=== PATIENT | male | born 1970 | race Caucasian/White ===

== ENCOUNTER 2019-02-01 20:34 | Observation (INO) ==
--- NOTE | 2019-02-01 21:21 | PROVIDER DOCUMENTATION ---
HPI-Rash/Wound/ReCheck - General Chief Complaint: Sores/Lesions Stated Complaint: CELLULITIS Time Seen by Provider: 02/01/19 21:15 Source: patient Allergies/Adverse Reactions: Allergies Allergy/AdvReac Type Severity Reaction Status Date / Time moxifloxacin HCl * Allergy ANAPHYLAXIS Verified 01/13/19 14:20 [From Avelox] Penicillins Allergy Unknown Verified 01/13/19 14:20 Home Medications: Home Medication List Medication Instructions Recorded Confirmed Last Taken Type Clonazepam [Klonopin] 0.5 mg PO DAILY PRN 05/16/14 02/02/19 01/13/19 History Metoprolol Succinate E.r. [Toprol 100 mg PO DAILY 03/29/16 02/02/19 01/13/19 History Xl] Citalopram [Celexa] 40 mg PO QHS 01/13/19 02/02/19 01/13/19 History Esomeprazole [Nexium] 40 mg PO DAILY PRN 01/13/19 02/02/19 01/13/19 History Fexofenadine/Pse E.r. 12 Hr 1 tab PO DAILY PRN 01/13/19 02/02/19 01/13/19 History [Antonietta-D 12 Hour] Levothyroxine [Synthroid] 75 microgm PO DAILY@0700 01/13/19 02/02/19 01/13/19 History Lisinopril/Hydrochlorothiazide 1 ea PO BID 01/13/19 02/02/19 01/13/19 History [Lisinopril-Hctz 20-12.5 mg Tab] Montelukast Sodium [Singulair] 10 mg PO PRN PRN 01/13/19 02/02/19 01/13/19 History - History of Present Illness-Dermatology Nature of Presenting Problem: 48 yom presents after 2 visits to urgent care drainage from navel and redness around it. he began abx on yesterday. denies fever, chills, n/v/d. Location: reports: torso Front/Back of Body: 1 - redness, drainage from navel Quality: reports: painful Severity: reports: mild Onset/Duration: reports: 2 days ago Timing: reports: still present Context/Associated Symptoms: reports: abrasion, other (reports he was doused with "garbage juice" at work 4 days ago) Identifiable cause?: No Recently seen or treated by another doctor?: Yes Review of Systems - Adult - REVIEW OF SYSTEMS - ADULT Constitutional: reports: no symptoms reported. denies: see HPI, chills, fever, fatique, night sweats, weight gain, weight loss, other Eyes: reports: no symptoms reported. denies: see HPI, discharge, dry eyes, decreased vision, blurred vision, double vision, eye pain, redness, other Ears, Nose, Mouth & Throat: reports: no symptoms reported. denies: see HPI, ear discharge, ear pain, hearing loss, tinnitus, epistaxis, sinus problem, nose pain, loose teeth, mouth/dental pain, mouth swelling, hoarseness, throat pain, throat swelling, other Cardiovascular: reports: no symptoms reported. denies: see HPI, chest pain, edema, heart murmur, irregular heart rate, orthopnea, palpitations, poor circulation, PND, syncope, other Respiratory: reports: no symptoms reported. denies: see HPI, chronic cough, cough, dyspnea on exertion, excessive sputum production, hemoptysis, pleurisy, shortness of breath, wheezing, other Gastrointestinal: reports: no symptoms reported. denies: see HPI, abdominal pain, hematemesis, constipation, diarrhea, difficulty swallowing, frequent heartburn, nausea, poor appetite, rectal bleeding, vomiting, other Genitourinary: reports: no symptoms reported. denies: see HPI, dysuria, discharge, frequency, flank pain, frequent UTI's, hematuria, hesitency, incontinence, urinary retention, urgency, other Musculoskeletal: reports: no symptoms reported. denies: see HPI, bone pain, back pain, frequent leg cramps, joint pain, joint swelling, muscle aches, muscle weakness, neck pain, other Integumentary: reports: skin sores/ulcer. denies: no symptoms reported, see HPI, hives, hair loss, itching, mole changes, nail changes, rash, skin thickening, other Neurological: reports: no symptoms reported. denies: see HPI, ataxia, dizziness/vertigo, headache/migraines, loss of balance, numbness, paresthesia, seizure, slurred speech, syncope, tremors, other Psychiatric: reports: no symptoms reported. denies: see HPI, anxiety, anti-depressant use, alcohol/drug dependence, depression, emotional problems, insomnia, panic attacks, suicidal thoughts, other Endocrine: reports: no symptoms reported. denies: see HPI, change in skin pigment, excessive sweating, goiter, cold intolerance, heat intolerance, increased hunger, increased thirst, polyuria, other Hematologic/Lymphatic: reports: no symptoms reported. denies: see HPI, blood clots, easy bruising, low blood count, lymphedema, prolonged bleeding, swollen lymph nodes, transfusions, other Allergic/Immunologic: reports: no symptoms reported. denies: see HPI, allergic reactions, allergic rhinitis, asthma, eczema, food allergy, frequent infections, hay fever, hives, positive PPD, urticaria, other Past History - Adult - PAST MEDICAL HISTORY-ADULT Review of Records: reports: Nursing Assessment Review, Social history reviewed & non-contributory. Major Childhood Illnesses: reports: denies history Cardiovascular: reports: HTN Respiratory: reports: denies history Gastrointestinal: reports: denies history Obstetrical/Gynecological: reports: denies history Genitourinary: reports: denies history Musculoskeletal: reports: denies history, other (gout) Neurological: reports: denies history Endocrine/Immune: reports: denies history Other Conditions: reports: denies history - PRIOR SURGERIES/PROCEDURES Surgical/Procedure History: reports: reviewed, not pertinent - PRIOR HOSPITALIZATIONS Prior Hospitalizations: reports: none - IMMUNIZATION STATUS Childhood Immunizations: See Nurse Assessment Flu Vaccine: See Nurse Assessment - FAMILY HISTORY Family History: reviewed, not pertinent Physical Exam-General - PHYSICAL EXAM-ADULT Initial Vital Signs Reviewed: Yes - CONSTITUTIONAL General Appearance: appears well, alert, no apparent distress - EYES Eyes: PERRL/EOMI, pink conjunctivae - HEAD, EARS, NOSE, MOUTH & THROAT HENMT: normocephalic/atraumatic, moist mucous membranes, normal ENT inspection - NECK Neck: non-tender, full range of motion - RESPIRATORY Respiratory: chest non-tender, lungs clear, normal breath sounds, no pleuratic chest pain, no respiratory distress, no accessory muscle use - CARDIOVASCULAR Cardiovascular: normal peripheral pulses, regular rate, rhythm, no edema, no gallop, no JVD, no murmur - GASTROINTESTINAL (ABDOMEN) Abdominal Exam: normal bowel sounds, non tender, soft - LYMPHATIC Lymphatic: no adenopathy - MUSCULOSKELETAL Back Exam: normal inspection, no CVA tenderness, no vertebral tenderness Extremity: normal range of motion, non-tender, normal gait - SKIN Integumentary: normal color, normal turgor, warm/dry - NEUROLOGIC Neurologic: grossly normal - PSYCHIATRIC Psych/Mental Status: normal mood/affect, oriented x 3 Progress - PLAN OF CARE/RESULTS Result Diagrams: 02/02/19 11:00 02/02/19 11:00 - CONSULTS/PCP/HOSPITALIST Notification #1 *Consult/PCP/Hospitalist*: SPOKE WITH DR. VALDES WHO RECOMMENDS ER STAFF MADE DECISION WHETHER TO ADM Time Discussed: 23:00 #2 Consult: DR DAVIAN ALMAZAN TO ADMIT, WILL GIVE VANCOMYCIN Consult Disposition: Admit Departure - Departure Date of Disposition Decision: 02/01/19 Time of Disposition Decision: 11:45 DIAGNOSIS: Cellulitis Disposition: ADMITTED INPATIENT 09 Certified Medical Emergency: Emergent Condition: Stable - Critical Care Note This patient required my direct & personal management of CC.: No Attestation - Physician/ CLARY Attestation Patient care was provided by Advanced Practice Provider:: Yes Advanced Practice Provider:: Monie Palacios Advanced Practice Provider documentation review:: The Mid-level provider documentation, treatment plan and medical decision making was reviewed by the physician who agrees with all treatment and medical decision making by the [facility]. The physician spent face to face time with patient:: Yes Advanced Practice Provider documentation review:: Supervising physician onsite and consulted in the evaluation and care of this patient. The physician did have a face to face encounter with the patient.
[2019-02-01 22:24] LABS: BASO# 0.12 X1000 (0.0-0.2); BASO% 1.1 % (0.0-0.8); EOS# 0.62 X1000 (0.0-0.7); EOS% 5.6 % (0.0-10.0); HEMATOCRIT 42.9 % (42.0-52.0); HEMOGLOBIN 14.2 g/dL (14.0-18.0); IMM GRAN# 0.05 X1000 (0.0-0.04); IMM GRAN% 0.5 % (0.0-0.5); LYMPH% 26.4 % (20.5-51.1); MCH 28.3 PG (27-31); MCHC 33.1 g/dL (33-37); MCV 85.6 FL (81-99); MONO# 1.07 X1000 (0.11-0.59); MONO% 9.7 % (1.7-9.3); MPV 9.5 FL (7.4-10.4); NEUT# 6.23 X1000 (1.4-6.5); NEUT% 56.7 % (42.2-75.2); PLT 288 X1000 (130-400); RBC 5.01 XMIL (4.7-6.1); WBC 10.99 X1000 (4.8-10.8)
[2019-02-02] MEDS ORDERED: VANCOMYCIN IV PER PHARMACY MISC SCH (00:03)
[2019-02-02 00:38] LABS: AGAP 10; BUN 15 mg/dL (8-22); CALCIUM 9.1 mg/dL (8.8-10.2); CHLORIDE 102 mmol/L (98-107); COSMO 280; CREATININE 0.7 mg/dL (0.7-1.2); ESTIMATED GFR > 60; GLUCOSE 97 mg/dL (70-104); POTASSIUM 4.3 mmol/L (3.5-5.1); SODIUM 140 mmol/L (136-145); TCO2 28 mmol/L (25-35)
[2019-02-02] MEDS: NS 1,000 ML IV SCH (01:15)
[2019-02-02] MEDS ORDERED: VANCOMYCIN 1 GM/NS 1 GM/250 ML IVPB IV ONE ×3 (01:15→12:30)
[2019-02-02] MEDS: ROCEPHIN 1 GM in NS 50 ML IV SCH (09:26)
[2019-02-02] MEDS ORDERED: ALLEGRA-D 12 HOUR PO PRN (10:15)
[2019-02-02] MEDS ORDERED: SINGULAIR PO PRN (10:15)
[2019-02-02] MEDS ORDERED: NEXIUM PO PRN (10:15)
[2019-02-02] MEDS: PRINIVIL PO SCH ×2 (11:02→21:47)
[2019-02-02] MEDS: HYDROCHLOROTHIAZIDE PO SCH ×2 (11:02→21:47)
[2019-02-02 11:19] LABS: BASO# 0.09 X1000 (0.0-0.2); EOS# 0.34 X1000 (0.0-0.7); EOS% 3.9 % (0.0-10.0); HEMATOCRIT 41.7 % (42.0-52.0); HEMOGLOBIN 13.8 g/dL (14.0-18.0); IMM GRAN# 0.03 X1000 (0.0-0.04); IMM GRAN% 0.3 % (0.0-0.5); LYMPH# 1.95 X1000 (1.2-3.4); LYMPH% 22.4 % (20.5-51.1); MCH 28.9 PG (27-31); MCHC 33.1 g/dL (33-37); MCV 87.2 FL (81-99); MONO# 0.87 X1000 (0.11-0.59); MPV 9.2 FL (7.4-10.4); NEUT# 5.41 X1000 (1.4-6.5); NEUT% 62.4 % (42.2-75.2); PLT 282 X1000 (130-400); RBC 4.78 XMIL (4.7-6.1); RDW 14.1 % (11.5-14.5); WBC 8.69 X1000 (4.8-10.8)
[2019-02-02 11:20] LABS: AGAP 9; BUN 13 mg/dL (8-22); CALCIUM 8.8 mg/dL (8.8-10.2); CHLORIDE 104 mmol/L (98-107); COSMO 286; CREATININE 0.7 mg/dL (0.7-1.2); ESTIMATED GFR > 60; GLUCOSE 106 mg/dL (70-104); MAGNESIUM 1.8 mg/dL (1.5-2.7); POTASSIUM 4.3 mmol/L (3.5-5.1); SODIUM 143 mmol/L (136-145); TCO2 30 mmol/L (25-35)
--- NOTE | 2019-02-02 11:23 | Diag Imaging Result Doc PS360 ---
EXAM: CT ABD/PELVIS W/IV CONT ONLY - 02/02/2019 HISTORY: umbilical cellulitis/drainage - rule out abscess TECHNIQUE: CT abdomen/pelvis with intravenous contrast. No oral contrast administered per request the referring provider. COMPARISON: CT abdomen/pelvis without contrast of 01/09/2019 FINDINGS: There is been development of skin thickening at the periumbilical region. There is been development of a cylindrical soft tissue thickening which extends from the umbilicus to the underlying midline anterior abdominal wall. This has maximum transverse dimension of 1.8 cm. This tapers (narrows) and the deeper subcutaneous fat near the anterior abdominal wall. The thickened area enhances relatively homogeneously. There is possibly a small amount of fluid within the thickened area. There is no discrete abscess identified. There is no subcutaneous gas identified. Abdominal wall vasculature does not appear thickened. There is no evidence of inflammation in the underlying anterior abdomen. There are no acute abnormalities of the liver, spleen, adrenal glands, or pancreas identified. There are no calcified gallstones or pericholecystic inflammation identified. There are small nonobstructing stones in bilateral kidneys. There is no hydronephrosis. There is possibly 4.3 x 2.7 cm in maximum axial dimensions low-density lesion at the mid left kidney. This was identified as a cyst on the 01/13/2019 renal ultrasound. There is no evidence of bowel obstruction. There is no free air. IMPRESSION: Cellulitis at periumbilical region. Narrow cylindrical extension of inflammation posterior to the umbilicus into the deep subcutaneous tissues. No discrete abscess. This exam was performed using automated exposure control, adjustment of mA or kV according to patient size, and/or use of iterative reconstruction technique. Electronically signed by Mc Goldman 02/02/2019 11:20 AM
--- NOTE | 2019-02-02 16:07 | HISTORY AND PHYSICAL ---
PRIMARY CARE PHYSICIAN: Dr. Adiel Carrera CHIEF COMPLAINT: Infection noted to umbilical area for the past 5 days. 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 The patient states that on of last week, he had a scratch to his lower abdomen in the umbilical area, and when he was driving the garbage truck, apparently he got out of the truck and somehow some of trash ended up on him. The next day, Friday, he noticed the abdominal wound started oozing a little bit. On Friday, he decided to go to to [facility] where they gave him a shot of dexamethasone and a shot of antibiotics. They also gave him an oral dose of doxycycline. The patient states that he took this for a few days and on Friday, he woke up and noticed that there was a large amount of pus draining from the wound, and his umbilical area was very edematous, and a lot of erythema was noted around the wound. PAST MEDICAL HISTORY: Hypertension, depression, anxiety, hypothyroidism, gout, kidney stones, and the patient states he is noted to have a cyst on the left kidney. He does see a urologist, Dr. Kane Guerrero, at [facility]. PAST SURGICAL HISTORY: None. FAMILY HISTORY: Mother had history of larynx cancer. Also had a history of atrial fibrillation. Dad has a history of prostate cancer and cardiomyopathy. SOCIAL HISTORY: The patient lives in [place] with his and his son. The patient does chew tobacco. The patient states that he does drink alcohol but is very rare. Denies any drug use. ALLERGIES: The patient states he does have seasonal allergy with multiple sinus infections. He is also allergic to Avelox and penicillin. MEDICATIONS: Celexa 40 mg p.o. daily at bedtime, Klonopin 0.5 mg p.o. daily, Nexium 40 mg p.o. daily, Antonietta D one tablet p.o. daily, Synthroid 75 mcg p.o. daily, lisinopril/hydrochlorothiazide 20/12.5 mg p.o. b.i.d., metoprolol 100 mg p.o. daily, Singulair 10 mg p.o. as needed. DIAGNOSTIC DATA: White blood cells initially was 10.99, today is 8.69. Hemoglobin and hematocrit are 13.8 and 41.7, platelet count is 282. Sodium level is 143, potassium 4.3, CO2 is 30, BUN is 1.3, creatinine 0.7, glucose 106, calcium 8.8, magnesium 1.8. TSH is 3.33. CT of the abdomen and pelvis done with impression of cellulitis at the periumbilical region, narrowed cylindrical extension of inflammation posterior to the umbilicus into the deep subcutaneous tissue. No abscess. CT also shows small nonobstructing stones in the bilateral kidneys with a 4.3 x 2.7 cm lesion on the left kidney that was identified as a cyst on 01/13/2019 by renal ultrasound. REVIEW OF SYSTEMS: Patient is positive for cellulitis to umbilical region, otherwise negative review of systems. PHYSICAL EXAMINATION: VITALS: Temperature 97.3, Heart rate 72, Respiratory Rate 20, BP 134/78 (89), O2 saturation 96% on room air. GENERAL: This is a 48-year-old male, who is sitting up in the chair. In no acute distress and answers questions appropriately. HEENT: Normocephalic and atraumatic. Pupils are equal, round, reactive to light. The extraocular movements are intact. The oropharynx and nares are clear. NECK: supple with no lymphadenopathy, trachea midline LUNGS: Clear to auscultation bilaterally with equal lung expansion and chest wall movement. HEART: Regular rate and rhythm. No murmurs rubs or gallops. ABDOMEN: Soft, tender, obese, and nondistended. Bowel sounds are present x 4 quadrants EXTREMITIES: No clubbing, cyanosis, or edema NEUROLOGICAL: The cranial nerves 2-12 are grossly intact. SKIN: Umbilical wound noted with serosanguinous drainage noted from wound. All other skin intact. ASSESSMENT AND PLAN: 1. Cellulitis to the umbilical region. Wound Care consulted for treatment. The patient did receive treatment in the ER by Dr. Souza where he cleaned the wound out. Antibiotic treatment of Rocephin 1 g every 24 hours and vancomycin ordered 2000 mg every 12 hours ordered. 2. Hypothyroidism. Reorder the patient's Synthroid. 3. Hypertension. Reordered his lisinopril/hydrochlorothiazide. 4. Depression. Reorder his Celexa and his Klonopin. We will continue the patient on IV antibiotics. As stated above, Wound Care is consulted for management. Dictated by SHAWANDA Garcia for Navin Rodriguez MD cc: MD Elia Coffey MD MTDD
[2019-02-02] MEDS: VANCOMYCIN 2,000 MG in NS 500 ML IV SCH (18:39)
[2019-02-02] MEDS: CELEXA PO SCH (21:47)
[2019-02-02] MEDS: KLONOPIN PO PRN (21:50)
--- NOTE | 2019-02-02 23:42 | HISTORY AND PHYSICAL ---
ADDENDUM: Patient seen and examined by myself. Full note dictated and discussed with nurse practitioner. Patient has drainage and swelling around his umbilicus. He has morbid obesity. A CT was not done in the ER and, therefore, we will order this morning. Place him on antibiotics and will follow. Please see full note. cc: Navin Rodriguez MD
[2019-02-03] MEDS: SYNTHROID PO SCH (06:04)
[2019-02-03] MEDS: VANCOMYCIN 2,000 MG in NS 500 ML IV SCH ×2 (06:04→22:30)
[2019-02-03] MEDS: NS 1,000 ML IV SCH (06:04)
[2019-02-03 07:32] LABS: BASO% 1.1 % (0.0-0.8); EOS# 0.49 X1000 (0.0-0.7); EOS% 5.6 % (0.0-10.0); HEMATOCRIT 43.8 % (42.0-52.0); HEMOGLOBIN 14.6 g/dL (14.0-18.0); IMM GRAN# 0.05 X1000 (0.0-0.04); IMM GRAN% 0.6 % (0.0-0.5); LYMPH# 1.86 X1000 (1.2-3.4); LYMPH% 21.1 % (20.5-51.1); MCH 28.6 PG (27-31); MCHC 33.3 g/dL (33-37); MCV 85.9 FL (81-99); MONO# 0.69 X1000 (0.11-0.59); MONO% 7.8 % (1.7-9.3); MPV 9.4 FL (7.4-10.4); NEUT# 5.62 X1000 (1.4-6.5); NEUT% 63.8 % (42.2-75.2); PLT 266 X1000 (130-400); WBC 8.81 X1000 (4.8-10.8)
[2019-02-03 07:41] LABS: AGAP 13; BUN 11 mg/dL (8-22); CHLORIDE 102 mmol/L (98-107); COSMO 283; CREATININE 0.7 mg/dL (0.7-1.2); ESTIMATED GFR > 60; GLUCOSE 99 mg/dL (70-104); POTASSIUM 3.6 mmol/L (3.5-5.1); SODIUM 142 mmol/L (136-145); TCO2 28 mmol/L (25-35)
[2019-02-03] MEDS: PRINIVIL PO SCH ×2 (09:05→22:30)
[2019-02-03] MEDS: TOPROL XL PO SCH (09:05)
[2019-02-03] MEDS: HYDROCHLOROTHIAZIDE PO SCH ×2 (09:05→22:30)
[2019-02-03] MEDS: KLONOPIN PO PRN (09:05)
[2019-02-03] MEDS: ROCEPHIN 1 GM in NS 50 ML IV SCH (11:03)
--- NOTE | 2019-02-03 13:47 | GENERAL SURGERY CONSULTATION ---
DATE: 02/03/2019 HISTORY: Mr. Hahn is an obese 48-year-old, male who works for the [employer] department. Last week he noted some pain and oozing from his umbilicus. He was seen in the [facility] on the and was given Decadron and antibiotics was then put on oral doxycycline. He had a large amount of pus noticed on the any was then sought medical attention. He reports a similar illness back in high school when he played football. It was felt then that he got staff from being in the locker room. PAST MEDICAL HISTORY: Pertinent for hypertension, depression, anxiety, hypothyroidism, gout, kidney stones and a cyst on the kidney. USUAL MEDICATIONS AT HOME INCLUDE: Celexa, Klonopin, Nexium, Antonietta D, Synthroid, lisinopril/hydrochlorothiazide, metoprolol, Singulair. ALLERGIES: Avelox and penicillin. PAST SURGICAL HISTORY: No previous surgical history. FAMILY HISTORY: Pertinent for history of prostate cancer and cardiomyopathy in his father. History of larynx cancer in his mother. SOCIAL HISTORY: He is employed. He is and has a son. He does not smoke. He does drink alcohol occasionally. Denies illicit drug use. REVIEW OF SYSTEMS: Negative except for his abdominal wall complaints. Denies any fever. PHYSICAL EXAMINATION: Vital Signs: He is afebrile. Heart rate 72, blood pressure 134/78. NECK: No cervical adenopathy. Lungs: Bilateral breath sounds. Heart: Regular rate and rhythm. Abdomen: Soft. He has a minimal edema and erythema of the periumbilical area, more the lower end of the left of the umbilicus. The umbilicus has a Drawtex stuck in it. There was no purulent drainage currently. Extremities: There is no peripheral edema. Neurologic: He is awake and alert. LABORATORY DATA: His white count is 8800, hemoglobin is 14.6, chemistry is fine. ASSESSMENT: Some mild residual cellulitis of his abdominal wall which should resolve with appropriate antibiotic therapy. I do not think he has any undrained purulence. The Drawtex would be fine to absorb whatever drainage is coming from his umbilicus. No operative intervention is indicated. I will be glad to see me in followup if necessary. cc: Tone Palacios MD
[2019-02-03] MEDS: CELEXA PO SCH (20:30)
--- NOTE | 2019-02-03 21:48 | PROGRESS NOTE ---
DATE: 02/03/2019 SUBJECTIVE: Patient has no new complaints. States he is starting to feel better. His abdominal pain is improved. Still having some umbilical drainage. PHYSICAL EXAMINATION: Vital Signs: Reviewed. He is awake, alert. He is in no current distress. HEENT: Normocephalic. Neck: Supple. Cardiovascular: Regular rate. Chest: Clear. Abdomen: Soft. Extremities: Moves all extremities. ASSESSMENT: 1. Cellulitis around his umbilicus, improving. 2. Morbid obesity. 3. Hypertension. 4. Depression. 5. Anxiety. 6. Hypothyroidism. PLAN: We will continue patient in the hospital. Continue antibiotics. Hopefully, he can discharge home over the next 1 or 2 days. We will await culture and sensitivity results. cc: Navin Rodriguez MD
[2019-02-04] MEDS: NS 1,000 ML IV SCH (02:22)
[2019-02-04 05:32] VITALS: BP 115/85
[2019-02-04] MEDS: SYNTHROID PO SCH (06:26)
[2019-02-04 06:40] LABS: BASO# 0.08 X1000 (0.0-0.2); BASO% 0.9 % (0.0-0.8); EOS# 0.55 X1000 (0.0-0.7); EOS% 5.9 % (0.0-10.0); HEMATOCRIT 42.4 % (42.0-52.0); IMM GRAN# 0.07 X1000 (0.0-0.04); IMM GRAN% 0.7 % (0.0-0.5); LYMPH% 29.9 % (20.5-51.1); MCH 28.5 PG (27-31); MCV 86.4 FL (81-99); MONO% 9.6 % (1.7-9.3); MPV 9.2 FL (7.4-10.4); NEUT# 4.97 X1000 (1.4-6.5); PLT 316 X1000 (130-400); RBC 4.91 XMIL (4.7-6.1); RDW 14.1 % (11.5-14.5); WBC 9.37 X1000 (4.8-10.8)
[2019-02-04 06:58] LABS: AGAP 9; BUN 10 mg/dL (8-22); CHLORIDE 104 mmol/L (98-107); COSMO 282; CREATININE 0.7 mg/dL (0.7-1.2); ESTIMATED GFR > 60; GLUCOSE 102 mg/dL (70-104); POTASSIUM 4.3 mmol/L (3.5-5.1); SODIUM 142 mmol/L (136-145); TCO2 29 mmol/L (25-35)
[2019-02-04] MEDS ORDERED: DOXYCYCLINE PO SCH (09:00)
[2019-02-04] MEDS: KLONOPIN PO PRN (09:08)
[2019-02-04] MEDS: HYDROCHLOROTHIAZIDE PO SCH (09:08)
[2019-02-04] MEDS: TOPROL XL PO SCH (09:08)
[2019-02-04] MEDS: PRINIVIL PO SCH (09:08)
[2019-02-04] MEDS ORDERED: KEFLEX PO SCH (14:00)
--- NOTE | 2019-02-05 05:05 | DISCHARGE SUMMARY ---
ADMISSION DATE: 02/02/2019 DISCHARGE DATE: 02/04/2019 CONSULTATIONS: Dr. Tone Palacios with General Surgery. PERTINENT PROCEDURES: Abdomen and pelvis CT, cellulitis at periumbilical region, [*]extension of inflammation posterior to the umbilicus into the deep subcutaneous tissue, no discrete abscess. DISCHARGE DIAGNOSES: 1. Cellulitis to the umbilical region. The patient was initiated on intravenous antibiotics, seen by General Surgery, who felt that there was some mild residual cellulitis of his abdominal wall which would resolve with appropriate antibiotic therapy. They did not feel like he had any undrained purulence and to continue with [*]to absorb whatever drainage was coming from his umbilicus and no operative intervention was indicated. His cultures grew out diphtheroids and he will be discharged home on oral Keflex. 2. Morbid obesity. 3. Hypertension. 4. Depression and anxiety. 5. Hypothyroidism. HOSPITAL COURSE: Briefly, Mr. Hahn is a 48-year-old male who is morbidly obese. 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 He states that on of last week, he had a scratch to his lower abdomen in the umbilical area and when he was driving the garbage truck apparently he got out and ended up with some trash on him. The next day he noted his abdominal wound started to ooze a little bit. On Friday, he went to [facility] where they gave him a shot of steroids and antibiotics as well as oral doxycycline. He took this for a few days and on Friday he woke up and noticed that there was a large amount of pus draining from the wound and his umbilical area was very edematous and a lot of erythema was noted around the wound. He was initiated on IV antibiotics in the ED with Rocephin and vancomycin as well as a wound care consult and general surgery. They did not feel that there was anything that need to be I D'd at that time, that he was draining appropriately and was clearing up with IV antibiotics. His cultures grew out diphtheroids and he will be discharged home on p.o. Keflex. He has had a stable hospital course. VITAL SIGNS: Temperature is 97.4 degrees, heart rate 60, respirations 16, blood pressure 115/85, O2 is 97% on room air. DISCHARGE DIET: Regular. DISCHARGE MEDICATIONS: 1. Celexa 40 mg p.o. at bedtime. 2. Antonietta-D 1 tab p.o. daily. 3. Klonopin 0.5 mg p.o. daily. 4. Lisinopril, hydrochlorothiazide 1 each p.o. b.i.d. 5. Nexium 40 mg p.o. daily. 6. Singulair 10 mg p.o. p.r.n. 7. Synthroid 75 mcg p.o. daily. 8. Toprol-XL 100 mg p.o. daily. 9. Keflex 500 mg p.o. 4 times a day x30 capsules FOLLOWUP: Mr. Hahn is being discharged back home with self care. He is to follow up with his primary care provider, Dr. Adiel Carrera in 1 to 2 weeks. He is to take all antibiotics as prescribed. Continue wound care as prescribed. He can return to the ED or call 911 for any worsening of symptoms. Dictated by SHAWANDA Carbajal for Navin Rodriguez MD cc: MD Dr. Adiel Coffey
--- NOTE | 2019-02-05 20:32 | DISCHARGE SUMMARY ---
ADMISSION DATE: 02/01/2019 DISCHARGE DATE: 02/04/2019 DISCHARGE DIAGNOSES: 1. Periumbilical cellulitis, improved. 2. Morbid obesity. 3. Hypothyroidism. 4. Hypertension. 5. Chronic anxiety and depression. CONSULTATION: Surgery. PROCEDURES: CT of the abdomen. BRIEF HOSPITAL COURSE: The patient is a 48-year-old male who presented to the hospital, treated in the usual fashion and placed on IV antibiotics, vancomycin and Zosyn. Continued to improve throughout the hospital stay. His wound culture did not grow any bacteria. We stopped his vancomycin. He has continued to improve; therefore, we will discharge him home with oral antibiotics. Surgery saw him in consultation and did not feel as though any surgical need was warranted currently. DISPOSITION: The patient will be discharged home. He will continue his home medications without any changes. We will continue antibiotics for another 7 days. He will follow up outpatient with his primary care. DISCHARGE MEDICATIONS: Keflex 500 three times a day for 7 days, as well as his current medication list from his [facility] dated 02/01. cc: Navin Rodriguez MD
== END 2019-02-04 10:58 | disposition home or self-care (01) ==
LOC: P.ED 20:34 → INTOOBSV 20:35 → P.MEDSURG 23:52
PROVIDERS: ATTEND Family Medicine
CPT/HCPCS: 74177; 80048; 80202; 83735; 84443; 85025; 87070; 99285; A9270; J0696; J3370; J7030; J7040; Q9967